=== PATIENT | female | born 1955 | race Caucasian/White ===

== ENCOUNTER 2021-09-15 11:20 | Emergency (ER) | payer BC, MEDICARE ==
[2021-09-15] MEDS ORDERED: Ketorolac 60 MG/2 ML SDV IM ONE (11:59)
[2021-09-15] MEDS ORDERED: Diazepam 5 MG Tab PO ONE (11:59)
--- NOTE | 2021-09-15 12:09 | EDM.PDOC ---
ED HPI GENERAL MEDICAL PROBLEM - General Chief Complaint: Back Pain or Injury Stated Complaint: Back Pain/Spasms Time Seen by Provider: 09/15/21 11:40 Source of Information: Reports: Patient History Limitations: Reports: No Limitations - History of Present Illness INITIAL COMMENTS - FREE TEXT/NARRATIVE: Patient has history of chronic upper back pain/several shoulder surgeries left shoulder. Increased discomfort upper left and mid back, but also some bilateral lower back pain now with radiation at times down left buttock. No new injury/activity. Received Baclofen from PCP but says it does not help. Her main concerns is the spasms she sometimes has in the back. Has had spasms before, this is not new. No loss bowel/bladder control. Is otherwise doing well. No new numbness/tingling. No new weakness. - Related Data Allergies Allergy/AdvReac Type Severity Reaction Status Date / Time latex Allergy FLUSHING Verified 09/15/21 11:26 prednisone Allergy UNKNOWN Verified 09/15/21 11:26 risedronate sodium Allergy CONSTIPATIO Verified 09/15/21 11:26 [From Actonel] N tramadol [From Ultram] Allergy UNKNOWN Verified 09/15/21 11:26 zinc Allergy FLUSHING Verified 09/15/21 11:26 Home Meds: Home Meds Baclofen 10 mg PO TID 09/15/21 [History] Lactobacillus Acidophilus [Probiotic] 1 each PO DAILY 09/15/21 [History] Lansoprazole [Prevacid] 30 mg PO DAILY 09/15/21 [History] Lutein 20 mg PO DAILY 09/15/21 [History] [place]anollee-3/DHA/Epa/Fish Oil [[place]anollee-3 Fish Oil 1,000 MG Sfgl] 2,000 mg PO DAILY 09/15/21 [History] Simvastatin [Zocor] 10 mg PO BEDTIME 09/15/21 [History] metroNIDAZOLE [Metronidazole] 1 applic TOP BID 09/15/21 [History] Past Medical History Cardiovascular History: Reports: High Cholesterol Gastrointestinal History: Reports: GERD Musculoskeletal History: Reports: Back Pain, Chronic Social & Family History - Tobacco Use Tobacco Use Status *Q: Never Tobacco User - Recreational Drug Use Recreational Drug Use: No Drug Use in Last 12 Months: No ED ROS GENERAL - Review of Systems Review Of Systems: See Below Constitutional: Reports: No Symptoms HEENT: Reports: No Symptoms Respiratory: Reports: No Symptoms Cardiovascular: Reports: No Symptoms GI/Abdominal: Reports: No Symptoms : Reports: No Symptoms. Denies: Incontinence Musculoskeletal: Reports: Back Pain Skin: Reports: No Symptoms Neurological: Reports: Other (left sciatic discomfort) Psychiatric: Reports: No Symptoms ED EXAM, GENERAL - Physical Exam Exam: See Below Exam Limited By: No Limitations General Appearance: Alert, WD/WN, No Apparent Distress Eye Exam: Bilateral Eye: EOMI, PERRL Ears: Normal External Exam, Normal Canal, Hearing Grossly Normal Nose: No: Nasal Deformity, Nasal Swelling, Nasal Drainage Throat/Mouth: Normal Lips, Normal Voice, No Airway Compromise Head: Atraumatic, Normocephalic Neck: Normal Inspection, Supple, Non-Tender, Full Range of Motion. No: Tender Lateral, Tender Midline Respiratory/Chest: No Respiratory Distress, Lungs Clear, Normal Breath Sounds, No Accessory Muscle Use, Chest Non-Tender Cardiovascular: Regular Rate, Rhythm, No Murmur GI/Abdominal: Soft, Non-Tender (Female) Exam: Deferred Rectal (Female) Exam: Deferred Back Exam: Paraspinal Tenderness (left upper, bilat mid, bilat low back. Discomfort with palpation over lower thoracic/lumbar spine, mild left gluteal notch tenderness). No: Muscle Spasm Extremities: Normal Inspection, Normal Range of Motion, Non-Tender, No Pedal Edema, Normal Capillary Refill Neurological: Alert, Oriented, Normal Cognition, Normal Gait, No Motor/Sensory Deficits Psychiatric: Normal Affect Skin Exam: Warm, Dry, Intact, Normal Color Course - Vital Signs Last Recorded V/S: Last Vital Signs Temp 36.6 C 09/15/21 11:20 Pulse 67 09/15/21 11:20 Resp 16 09/15/21 11:20 BP 129/77 09/15/21 11:20 Pulse Ox 99 09/15/21 11:20 - Orders/Labs/Meds Meds: Medications Discontinued Medications Generic Name Dose Route Start Last Admin Trade Name Manuel PRN Reason Stop Dose Admin Diazepam 5 mg 09/15/21 11:59 09/15/21 12:15 Diazepam 5 Mg Tab PO 09/15/21 12:00 5 mg ONETIME ONE Administration Ketorolac Tromethamine 60 mg 09/15/21 11:59 09/15/21 12:15 Ketorolac 60 Mg/2 Ml Sdv IM 09/15/21 12:00 60 mg ONETIME ONE Administration - Re-Assessments/Exams Free Text/Narrative Re-Assessment/Exam: 09/15/21 17:22 Acute exacerbation of chronic back pain with new left sciatic involvement. Plan is to give single Valium to help with spasms and single Toradol dose. Patient declines Rx for pain meds or additional Valium as she is nervous to take them. No work for 48 hours. Rest. Follow up with PCP later this week for recheck if no significant improvement or further work restrictions needed. May need further eval/imaging if back pain/sciatic symptoms persist. Departure - Departure Time of Disposition: 11:59 Disposition: Home, Self-Care 01 Condition: Good Clinical Impression: Back muscle spasm Back pain Qualifiers: Back pain location: back pain in unspecified location Chronicity: acute Back pain laterality: bilateral Qualified Code(s): M54.9 - Dorsalgia, unspecified - Discharge Information *PRESCRIPTION DRUG MONITORING PROGRAM REVIEWED*: Not Applicable *COPY OF PRESCRIPTION DRUG MONITORING REPORT IN PATIENT JOSE: Not Applicable Instructions: Muscle Cramps and Spasms Referrals: Alessandra Diallo NP [Primary Care Provider] - Forms: ED Department Discharge, ED Return to Work/School Form Additional Instructions: No work for 48 hours. See if the Valium makes a better difference with the spasms. Try Epsom salt soaks several times a day as discussed. 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 Mag SRT or Mag Glycinate are good choices. A good electrolyte Reading the Align Method and performing those exercises along with doing yoga may be helpful usp approach to managing flares of back pain. Follow up with Alessandra regarding the pain/how you are doing tomorrow or Thursday. If the Valium worked well she may be able to give you a small prescripton for additional pills. Look into a referral to PT. You may need advanced imaging/MRI as discussed for better evaluation of your spine given the increased pain and sciatica. OK to return to chiropractor. Look into body work/targeted massage. Follow up otherwise as needed for acute worsening problems. Sepsis Event Note (ED) - Evaluation Sepsis Screening Result: No Definite Risk - Focused Exam Vital Signs: Vital Signs Temp Pulse Resp BP Pulse Ox 09/15/21 11:20 36.6 C 67 16 129/77 99
== END 2021-09-15 12:30 | disposition home or self-care (01) ==
LOC: LL.ED 11:20
DX: M62.830 Muscle spasm of back (principal); E78.00 Pure hypercholesterolemia, unspecified; K21.9 Gastro-esophageal reflux disease without esophagitis; Z91.040 Latex allergy status; Z88.8 Allergy status to other drugs, medicaments and biological substances; Z88.5 Allergy status to narcotic agent; Z79.899 Other long term (current) drug therapy
CPT/HCPCS: 96372; 99283; A9270-GY; J1885

== ENCOUNTER 2021-09-26 09:27 | Day surgery (SDC) | payer BC ==
[~2021-09-26 09:27] MED LIST: Lactated Ringers 1,000 ML IV SCH; Midazolam 1 MG/ML 2 ML SDV ONE; Propofol 200 MG/20 ML SDV ONE; Sodium Chloride 0.9% 10 ML Syringe FLUSH PRN
[2021-09-26] MEDS ORDERED: Propofol 200 MG/20 ML SDV ONE (10:22)
[2021-09-26] MEDS ORDERED: Lidocaine 2% 5 ML SDV ONE (10:22)
[2021-09-26] MEDS ORDERED: Midazolam 1 MG/ML 2 ML SDV ONE (10:22)
[2021-09-26] MEDS ORDERED: Ondansetron 4 MG/2 ML SDV IVPUSH ONE (11:00)
== END 2021-09-26 11:45 | disposition home or self-care (01) ==
LOC: LL.SDS 09:27
PROVIDERS: ATTEND Surgery
DX: Z12.11 Encounter for screening for malignant neoplasm of colon (principal); K57.30 Diverticulosis of large intestine without perforation or abscess without bleeding; K21.9 Gastro-esophageal reflux disease without esophagitis; L71.9 Rosacea, unspecified; Z79.899 Other long term (current) drug therapy; Z88.2 Allergy status to sulfonamides; Z88.8 Allergy status to other drugs, medicaments and biological substances; Z91.040 Latex allergy status; Z98.890 Other specified postprocedural states; Z87.891 Personal history of nicotine dependence
CPT/HCPCS: 00813; J2250; J2704; J7120